=== PATIENT | female | born 1940 | race Caucasian/White ===

== ENCOUNTER 2018-08-26 02:34 | Emergency (ER) | payer BC, MEDICARE ==
[2018-08-26 02:38] VITALS: BP 126/65; PULSE 69
[2018-08-26] MEDS ORDERED: diphenhydrAMINE 25 MG Cap PO ONE (02:41)
[2018-08-26] MEDS ORDERED: Triamcinolone Acetonide 40 MG/ML 1 ML MDV INJECT ONE (02:42)
--- NOTE | 2018-08-26 02:48 | EDM.PDOC ---
ED HPI GENERAL MEDICAL PROBLEM - General Chief Complaint: Skin Complaint Stated Complaint: [facility] Time Seen by Provider: 08/26/18 02:43 Source of Information: Reports: Patient History Limitations: Reports: No Limitations - History of Present Illness INITIAL COMMENTS - FREE TEXT/NARRATIVE: pt was seen on the with some red raised area on both feet. She has now developed some lesions on the neck that look like bites. The pt states that they itch alot. She was nervous because these seem to be moving. Onset: Other ( started on the . ) Duration: Hour(s): Associated Symptoms: Reports: No Other Symptoms reddened areas on skin Pain Score (Numeric/FACES): 7 - Related Data Allergies Allergy/AdvReac Type Severity Reaction Status Date / Time trazodone AdvReac Intermediate Nausea and Verified 08/26/18 02:35 Vomiting Home Meds: Home Meds Cholecalciferol (Vitamin D3) [Vitamin D] 600 units PO DAILY 12/18/12 [History] Cyanocobalamin (Vitamin B-12) [Vitamin B-12] 1,000 mcg PO DAILY 12/18/12 [ History] FLUoxetine HCl [Prozac] 10 mg PO DAILY 12/18/12 [History] Levothyroxine 112 mcg PO DAILY 12/18/12 [History] Naproxen Sodium [Aleve] 220 mg PO DAILY 12/18/12 [History] Past Medical History [facility] History: Reports: Musculoskeletal History: Reports: Back Pain, Chronic Endocrine/Metabolic History: Reports: Hypothyroidism Oncologic (Cancer) History: Reports: Breast - Past Surgical History HEENT Surgical History: Reports: Cataract Surgery, Myringotomy w Tube(s) GI Surgical History: Reports: Colonoscopy, EGD, Other (See Below) Musculoskeletal Surgical History: Reports: Other (See Below) Oncologic Surgical History: Reports: Lumpectomy, Other (See Below) ED ROS GENERAL - Review of Systems Review Of Systems: See Below Constitutional: Reports: No Symptoms HEENT: Reports: No Symptoms Respiratory: Reports: No Symptoms Cardiovascular: Reports: No Symptoms Endocrine: Reports: No Symptoms GI/Abdominal: Reports: No Symptoms : Reports: No Symptoms Skin: Reports: Rash, Other (pt has lesions on the rt side of her neck which itch alot. ) Neurological: Reports: No Symptoms Psychiatric: Reports: No Symptoms ED EXAM, SKIN/RASH Exam: See Below Text/Narrative:: pt has some itch lesions which are on the rt side of her neck These appear to be bites and not hives. Exam Limited By: No Limitations General Appearance: Alert, Anxious Ears: Normal TMs Nose: Normal Inspection Throat/Mouth: Normal Inspection Head: Sinus Tenderness Neck: Normal Inspection Respiratory/Chest: No Respiratory Distress Cardiovascular: Regular Rate, Rhythm GI/Abdominal: Soft, Non-Tender (Female) Exam: Deferred Rectal (Female) Exam: Deferred Back Exam: Normal Inspection Extremities: Normal Inspection Neurological: Alert, Oriented, Normal Cognition Course - Vital Signs Last Recorded V/S: Last Vital Signs Temp 36.0 C 08/26/18 02:38 Pulse 69 08/26/18 02:38 Resp 15 08/26/18 02:38 BP 126/65 08/26/18 02:38 Pulse Ox 95 08/26/18 02:38 - Orders/Labs/Meds Meds: Medications Discontinued Medications Generic Name Dose Route Start Last Admin Trade Name Freq PRN Reason Stop Dose Admin Diphenhydramine HCl 50 mg 08/26/18 02:41 08/26/18 02:59 Benadryl PO 08/26/18 02:42 50 mg ONETIME ONE Administration Triamcinolone Acetonide 60 mg 08/26/18 02:42 08/26/18 02:59 Kenalog-40 INJECT 08/26/18 02:43 60 mg ASDIRECTED ONE Administration - Re-Assessments/Exams Free Text/Narrative Re-Assessment/Exam: 08/26/18 02:48 pt was given kenalog 60mg im and benadryl 50 mg po. Pt Is having her apartment checked out in the next few days. 08/29/18 18:33 Departure - Departure Time of Disposition: 03:00 Disposition: Home, Self-Care 01 Condition: Fair Clinical Impression: Bites - Discharge Information Instructions: Insect Bite, Adult, [id number] Referrals: PCP,None [Primary Care Provider] - Forms: ED Department Discharge Care Plan Goals: benadryl 25 mg q6h prn for itching and swelling. Have apartment checkedfor bed bugs,
== END 2018-08-26 03:21 | disposition home or self-care (01) ==
LOC: JP.ED 02:34
DX: S10.96XA Insect bite of unspecified part of neck, initial encounter (principal); E03.9 Hypothyroidism, unspecified; Z79.899 Other long term (current) drug therapy; Z96.22 Myringotomy tube(s) status; Z98.49 Cataract extraction status, unspecified eye; Z88.8 Allergy status to other drugs, medicaments and biological substances; W57.XXXA Bitten or stung by nonvenomous insect and other nonvenomous arthropods, initial encounter
CPT/HCPCS: 96372; 99283; A9270; J3301

== ENCOUNTER 2019-05-21 05:25 | Inpatient (IN) | payer MEDICARE ==
[2019-05-21] MEDS ORDERED: Acetaminophen 500 MG Tab PO ONE (05:31)
[2019-05-21] MEDS ORDERED: ceFAZolin 2 GM in Premix Bag 1 BAG IV ONE (06:30)
[2019-05-21] MEDS ORDERED: Isosulfan Blue 5 ML SDV ONE (06:40)
[2019-05-21] MEDS ORDERED: Albuterol/Ipratropium 3.0-0.5 MG/3 ML Neb Soln NEB ONE (07:00)
[2019-05-21] MEDS ORDERED: Neostigmine Methylsulfate 1 MG/ML 5 ML Syringe ONE (07:04)
[2019-05-21] MEDS ORDERED: fentaNYL 250 MCG/5 ML SDV ONE (07:04)
[2019-05-21] MEDS ORDERED: Ondansetron 4 MG/2 ML SDV ONE (07:04)
[2019-05-21] MEDS ORDERED: Rocuronium 50 MG/5 ML Vial ONE (07:04)
[2019-05-21] MEDS ORDERED: Succinylcholine 200 MG/10 ML MDV ONE (07:04)
[2019-05-21] MEDS ORDERED: Glycopyrrolate 0.2 MG/ML 5 ML MDV ONE (07:04)
[2019-05-21] MEDS ORDERED: Dexamethasone 4 MG/ML SDV ONE (07:04)
[2019-05-21] MEDS ORDERED: Propofol 200 MG/20 ML SDV ONE (07:04)
[2019-05-21] MEDS: Dextrose 5%-Lactated Ringers 1,000 ML IV SCH ×3 (07:15→19:59)
[2019-05-21] MEDS ORDERED: HYDROmorphone/Normal Saline 15 MG/30 ML PCA IV PRN (07:33)
[2019-05-21] MEDS ORDERED: Naloxone 0.4 MG/ML SDV IVPUSH PRN (07:33)
[2019-05-21] MEDS ORDERED: Naloxone 0.4 MG/ML SDV IV PRN (07:38)
[2019-05-21] MEDS ORDERED: hydrOXYzine HCL 100 MG/2 ML SDV IM PRN (10:25)
[2019-05-21] MEDS ORDERED: Ondansetron 4 MG/2 ML SDV IVPUSH PRN (10:25)
--- NOTE | 2019-05-21 10:28 | CR ---
CHEST: 2 view CLINICAL HISTORY:Wheezing COMPARISON:2011 FINDINGS: Heart is mildly enlarged pulmonary vascularity is normal. No infiltrate effusion or pneumothorax is seen. There are a few scattered granulomata. Impression: Mild cardiomegaly No acute cardiopulmonary process Previous granulomatous exposure.
[2019-05-21] MEDS: Acetaminophen 325 MG Tab PO SCH ×2 (15:49→19:58)
[2019-05-21] MEDS: ceFAZolin 2 GM in Premix Bag 1 BAG IV SCH ×2 (15:50→22:25)
[2019-05-22] MEDS: Acetaminophen 325 MG Tab PO SCH ×4 (01:32→19:36)
[2019-05-22] MEDS: ceFAZolin 2 GM in Premix Bag 1 BAG IV SCH (05:32)
[2019-05-22] MEDS ORDERED: HYDROmorphone 2 MG Tab PO PRN (07:04)
[2019-05-22] MEDS: Levothyroxine 112 MCG Tab PO SCH (07:16)
--- NOTE | 2019-05-22 08:00 | PN ---
DATE OF SERVICE: 05/22/2019 SUBJECTIVE: Claudia is postoperative day 1. Her pain has been controlled. She has been up ambulating, n.p.o., and vital signs have been stable. REVIEW OF SYSTEMS: Remainder of review of systems negative for any pertinent positives and negatives. OBJECTIVE: GENERAL: Claudia Hutchinson is a pleasant 79-year-old female. She is alert, orientated. VITAL SIGNS: TPR is 97.6, 66, 16, blood pressure 112/42. HEENT: Negative. NECK: Supple. HEART: Regular rate and rhythm. LUNGS: Revealed decreased breath sounds in bases. Occasional wheezing. Dressings are dry and intact. WILLY drains have been draining 58 and 32 of a light pink drainage. ABDOMEN: Soft, nontender. EXTREMITIES: Without peripheral edema. ASSESSMENT: Left modified radical mastectomy for local recurrence of left breast cancer, status post laparotomy, and right breast cancer in 1996. Date of surgery: 05/21/2019. Surgeon: Alexander Muller MD PLAN: 1. Teach the patient how to strip, empty, measure, and record WILLY drains 4 times a day. 2. Assess home health care. 3. Regular diet. 4. Dilaudid 2 mg every 4 hours p.r.n. pain. 5. Convert IV to saline lock. If the patient able to eat breakfast, okay. 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 6. Good pulmonary toilet. We will evaluate p.r.n. or in a.m. Darlene Kuhn PA-C /[id number]
[2019-05-23] MEDS: Acetaminophen 325 MG Tab PO SCH ×4 (02:55→20:20)
[2019-05-23] MEDS: Levothyroxine 112 MCG Tab PO SCH (07:45)
--- NOTE | 2019-05-23 08:57 | PN ---
DATE OF SERVICE: 05/23/2019 SUBJECTIVE: Claudia is postoperative day #2. She states her pain is controlled with Tylenol. She has been up, ambulating. Has not had a bowel movement yet. Vital signs have been stable. She has been afebrile. REVIEW OF SYSTEMS: Remainder of review of systems negative for any pertinent positives and negatives. OBJECTIVE: GENERAL: Claudia Hutchinson is a pleasant 79-year-old female. She is alert and orientated. VITAL SIGNS: TPR at 07:25 is 97.3; 87; 16; blood pressure 102/64. HEENT: Negative. NECK: Supple. HEART: Regular rate and rhythm. LUNGS: Clear. BREASTS: Left mastectomy site, dressing dry and intact, will be removed by nursing staff. WILLY drain is intact and draining over the past 24 hours, 30 and 20 mL of a light pink drainage. EXTREMITIES: Reveal trace peripheral edema. ASSESSMENT: Left modified radical mastectomy for local recurrence of left breast cancer, status post laparotomy, status post right breast cancer in 1996. . Date of surgery: 05/21/2019. Surgeon: Alexander Muller MD. PLAN: 1. Discontinue dressing, may shower. 2. Dulcolax 10 mg p.o. b.i.d. as scheduled, discontinue when the patient has a bowel movement, and Colace 100 mg p.o. b.i.d. 3. Good pulmonary toilet. 4. We will evaluate p.r.n. or in a.m. 5. Home health care will be set up and plan discharge for the patient in a.m. Darlene Kuhn PA-C /[id number]
[2019-05-23] MEDS ORDERED: Bisacodyl 5 MG Tab PO SCH (09:00)
[2019-05-23] MEDS: Docusate Sodium 100 MG Cap PO SCH ×2 (10:15→20:21)
--- NOTE | 2019-05-23 12:53 | OR ---
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 OPERATIVE PROCEDURE: Left modified radical mastectomy (). ANESTHESIA: General. MATERIAL SPECIALIST: Darlene Kuhn PA-C INDICATIONS FOR PROCEDURE: The patient presents with, what appeared to be, 2 small foci of recurrent infiltrating ductal carcinoma in a lumpectomy site. The patient underwent a lumpectomy, radiation treatment, along with what appeared to be a fairly full axillary dissection in 1996. The pathology fortunately has come back fairly differentiated with ER and NM receptors both preserved, HER2 was negative, and no evidence of any local regional disease apart from some firmness at the lumpectomy site. The plan is to proceed with a left modified radical mastectomy. We will try to get as much additional axillary soft tissue out to get some juni sampling. At this point, the juni spread pattern with the patient having what appeared to be a fairly extensive previous axillary dissection, such that we may not get much in the way of additional juni tissue and the pattern of spread would be somewhat variable, so it appeared the best way to get some beginning on the juni issue would be to do more of a complete axillary dissection. Potential risks of the procedure including bleeding, infection, local or distant tumor recurrence, problems with swelling of the arm following the axillary dissection were all reviewed, and the patient wishes to proceed. DETAILS OF PROCEDURE: The patient was taken to the operating room. After general endotracheal anesthesia was induced, she was placed in a supine position. The left breast, axilla, and surrounding areas were prepped and draped. A wide elliptical incision including the previous lumpectomy site as well the nipple-areolar complex was made and carried down through the skin and subcutaneous tissue, and the dissection continued medially, superiorly, and laterally to the usual extent. The breast was then reflected off the chest wall in continuity with pectoralis major fascia and at no point sensing we were nearby any tumor near the plane of dissection. At this point, the remaining axillary soft tissue from the axillary vein inferiorly including some level-1 tissue was excised. There were no obvious palpable enlarged nodes within that. Care was taken to avoid injury to the long thoracic and thoracodorsal nerves, both of which were identified during the dissection. At this point, no further problems were noted. Two Brent-López drains were then placed through stab wounds inferior to the main incision. The incision was closed with some 3-0 Vicryl stitch deep and juan for the skin. Drains were fixed with some 3-0 Vicryl stitch as well. The patient was taken to the recovery room in satisfactory condition. Physician occupational therapist's assistant, Darlene Kuhn, played an essential role in assisting in this case; helping to position the patient, retract structures as needed, as well as suturing and cutting sutures when indicated. Her presence improved patient safety and decreased the operative time. Alexander Muller MD /[id number]
[2019-05-24] MEDS: Acetaminophen 325 MG Tab PO SCH ×2 (02:52→08:37)
[2019-05-24 07:37] VITALS: BP 133/64; PULSE 82
[2019-05-24] MEDS: Levothyroxine 112 MCG Tab PO SCH (08:38)
[2019-05-24] MEDS: Docusate Sodium 100 MG Cap PO SCH (08:38)
--- NOTE | 2019-05-24 09:58 | DISCH ---
ADMISSION DIAGNOSIS: 1. Left breast cancer. 2. Hypothyroidism. 3. History of breast cancer, left breast 23 years ago. 4. Osteoarthritis. 5. History of hepatitis A. 6. Anxiety. 7. Depression. 8. Claustrophobia. 9. Chronic dizziness. 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 Date of surgery: 05/21/2019. HISTORY: Claudia Hutchinson is a pleasant 79-year-old female and presented with what appeared to be 2 small foci of recurrent infiltrating ductal carcinoma in the lumpectomy site. After preoperative evaluation, discussion of possible risks and possible complications, she wished to proceed with surgical procedure. HOSPITAL COURSE: Claudia had her surgery on 05/21/2019. She had no operative complications. On postoperative day #1, she was started on a regular diet. Pain was controlled. IV was saline locked. She was up, ambulating. Postop day #2, she remained afebrile and she was taught how to manage her WILLY drains while at home and she was also given bowel stimulation. Postop day #3, vital signs were stable. Pain was well managed. Activity was good and able to be discharged to home without any complications. PHYSICAL EXAMINATION: GENERAL: Claudia Hutchinson is a pleasant 79-year-old female, height is 5 feet 1 inch, weight is 184 pounds. BMI is 34.7. VITAL SIGNS: TPR at 0735, 96.8, 82, 16, blood pressure is 133/64. HEENT: Negative. NECK: Supple. HEART: Regular rate and rhythm. LUNGS: Clear. CHEST: Left mastectomy site incision looks good. [place] intact. She has 2 WILLY drains draining a light pink drainage of 92 and 28 respectively. ABDOMEN: Soft and nontender. EXTREMITIES: Without peripheral edema. DISPOSITION: Discharged to home. CONDITION: Stable and improving. She will be having home health care. FOLLOWUP APPOINTMENT: 05/30/2019 at 9 a.m. with Alexander Muller MD, [facility]. HOME MEDICATIONS: 1. Tylenol 650 mg q.6 hours p.r.n. pain. 2. Vitamin D3 600 international units oral daily. 3. Vitamin B12 1000 mcg oral daily. 4. Levothyroxine 112 mcg oral daily. 5. Naproxen 440 mg once daily p.r.n. pain. DIET: Usual diet as tolerated. Drink 8 to 10 glasses of water a day. OTHER ACTIVITY: No lifting over 10 pounds for 6 weeks. Walk inside your home 6 times daily. Driving: Do not drive for 1 week. Shower/bathing: May shower. DISCHARGE INSTRUCTIONS: Notify provider if any fever, increased pain, nausea, vomiting. Keep site clean and dry. Wound incision care: Strip, empty, measure and record WILLY drains 4 times a day. Bring record of drainage to clinic appointment. Special instruction: Use incentive spirometer 10 times every hour while awake for 1 week. Start exercise that the Physical Therapy gave you in one month as directed.
== END 2019-05-24 11:10 | disposition home health service (06) | DRG 583 ==
LOC: JP.SDSSCHI 05:25 → JP.SDS 05:25 → JP.2SS 09:30 → EDSTATUS 11:45
PROVIDERS: ADMIT Surgery; ATTEND Surgery
PROC: 0HTU0ZZ Resection of Left Breast, Open Approach (ICD-10-PCS; principal; 2019-05-21)
DX: C50.912 Malignant neoplasm of unspecified site of left female breast (principal); E03.9 Hypothyroidism, unspecified; M19.90 Unspecified osteoarthritis, unspecified site; F40.240 Claustrophobia; F41.8 Other specified anxiety disorders; Z79.890 Hormone replacement therapy; Z79.899 Other long term (current) drug therapy; Z88.8 Allergy status to other drugs, medicaments and biological substances; Z87.891 Personal history of nicotine dependence
CPT/HCPCS: 36415; 71046; 71046-26; 80053; 83735; 83880; 84100; 84443; 85027; 86300; 88305; 88307; 94640; 94762; 97161-GP; 97535-GP; A9270-GY; J0330; J0690; J1100; J1170; J2405; J2704; J2710; J3010; J3490; J7121; J7620-GY; Q9968

== ENCOUNTER 2020-02-24 16:21 | Emergency (ER) | payer MEDICARE ==
[2020-02-24] MEDS ORDERED: Morphine 4 MG/ML Syringe IVPUSH PRN (16:50)
[2020-02-24] MEDS ORDERED: Aspirin 81 MG Tab.Chew PO ONE (16:50)
[2020-02-24] MEDS ORDERED: Sodium Chloride 0.9% 10 ML Syringe FLUSH PRN ×2 (16:50→17:47)
--- NOTE | 2020-02-24 16:54 | EDM.PDOC ---
<OfficerRodrigue - Last Filed: 02/24/20 16:52> ED HPI GENERAL MEDICAL PROBLEM - General Chief Complaint: Cardiovascular Problem Stated Complaint: LAST NIGHT CHEST PAIN AND SIDE PAIN STARTED Time Seen by Provider: 02/24/20 16:44 Source of Information: Reports: Patient, RN Notes Reviewed History Limitations: Reports: No Limitations - History of Present Illness INITIAL COMMENTS - FREE TEXT/NARRATIVE: 80-year-old female presents emergency department take complaint of shortness of breath and chest pain that radiates down her left arm, she states the pain started last night has become progressively more short of breath through the day has a known history of breast cancer with a right-sided mastectomy however breast cancer has returned. 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 Left Chest Pain Score (Numeric/FACES): 3 - Related Data Allergies Allergy/AdvReac Type Severity Reaction Status Date / Time propranolol Allergy Hives Verified 05/11/19 09:55 trazodone AdvReac Intermediate Nausea and Verified 05/11/19 09:55 Vomiting Home Meds: Home Meds Cholecalciferol (Vitamin D3) [Vitamin D3] 600 units PO DAILY 12/18/12 [History] Cyanocobalamin (Vitamin B-12) [Vitamin B-12] 1,000 mcg PO DAILY 12/18/12 [History] Levothyroxine 112 mcg PO DAILY 12/18/12 [History] Naproxen Sodium [Aleve] 440 mg PO DAILY 12/18/12 [History] Acetaminophen [Tylenol] 650 mg PO Q6H tablet 05/24/19 [Rx] Anastrozole [Arimidex] 1 mg PO DAILY 02/24/20 [History] FLUoxetine [PROzac] 10 mg PO DAILY 02/24/20 [History] Past Medical History HEENT History: Reports: Glaucoma, Impaired Vision Other HEENT History: wears glasses Cardiovascular History: Reports: Blood Clots/VTE/DVT, Cardiomyopathy, Heart Failure (Ejection fraction 60% echo 2019), SOB on Exertion Respiratory History: Reports: Bronchitis, Recurrent Gastrointestinal History: Reports: Diverticulosis, Hemorrhoids Genitourinary History: Reports: Renal Disease [employer] History: Reports: Musculoskeletal History: Reports: Arthritis, Back Pain, Chronic, Other (See Below) Other Musculoskeletal History: bilat leg and feet pain Psychiatric History: Reports: Anxiety, Depression, Psych Hospitalization(s), Suicide Attempt Endocrine/Metabolic History: Reports: Hypothyroidism, Obesity/BMI 30+ Hematologic History: Reports: B12 Deficiency, Bleeding Disorder, Blood Transfusion(s) Oncologic (Cancer) History: Reports: Breast Dermatologic History: Reports: Eczema - Infectious Disease History Infectious Disease History: Reports: Chicken Pox, Hepatitis A, Measles, Mumps, Rubella, Shingles - Past Surgical History HEENT Surgical History: Reports: Cataract Surgery, Myringotomy w Tube(s), Tonsillectomy Cardiovascular Surgical History: Reports: None Respiratory Surgical History: Reports: None GI Surgical History: Reports: Colonoscopy, EGD, Other (See Below) Other GI Surgeries/Procedures: colon surgery; hemorrhoidectomy Female Surgical History: Reports: Breast Biopsy, Other (See Below) Other Female Surgeries/Procedures: lumpectomy with axcillary dissection Endocrine Surgical History: Reports: None Musculoskeletal Surgical History: Reports: Knee Replacement, Other (See Below) Other Musculoskeletal Surgeries/Procedures:: trigger finger Oncologic Surgical History: Reports: Lumpectomy, Other (See Below) Other Oncologic Surgeries/Procedures: removed lymphnodes on left side Dermatological Surgical History: Reports: None Social & Family History - Family History HEENT: Reports: Cataract Cardiac: Reports: [place], Other (See Below) Other Cardiac Family History: rheumatic fever Respiratory: Reports: Asthma GI: Reports: Other (See Below) Other GI Family History: colon resection : Reports: Other (See Below) Other Family History: Brights disease Musculoskeletal: Reports: RA Neurological: Reports: CVA Psychiatric: Reports: Anxiety, Depression Endocrine/Metabolic: Reports: Diabetes, type II, Hypothyroidism Hematologic: Reports: Bleeding Disorder Oncologic: Reports: Breast, Liver, Ovarian, Other (See Below) Other Oncologic Family History: larynx cancer - Tobacco Use Tobacco Use Status *Q: Never Tobacco User - Caffeine Use Caffeine Use: Reports: Coffee ED ROS GENERAL - Review of Systems Review Of Systems: See Below Constitutional: Reports: No Symptoms HEENT: Reports: No Symptoms Respiratory: Reports: Shortness of Breath Cardiovascular: Reports: Chest Pain, Dyspnea on Exertion GI/Abdominal: Reports: No Symptoms : Reports: No Symptoms ED EXAM, GENERAL - Physical Exam Exam: See Below Exam Limited By: No Limitations General Appearance: Alert, WD/WN, No Apparent Distress Respiratory/Chest: No Respiratory Distress, No Accessory Muscle Use, Crackles (Bases bilaterally) Cardiovascular: Regular Rate, Rhythm, No Murmur GI/Abdominal: Soft, Non-Tender Extremities: No Pedal Edema Departure - Departure Disposition: Home, Self-Care 01 Clinical Impression: Left-sided chest wall pain Instructions: Chest Wall Pain, [id number] Referrals: Dawson Felder MD [Primary Care Provider] - Forms: ED Department Discharge Additional Instructions: [place] OR acetaminophen for pain relief. Recheck with your provider later this week. Sepsis Event Note (ED) - Evaluation Sepsis Screening Result: No Definite Risk <Cali Lakhani - Last Filed: 02/24/20 19:24> Course - Vital Signs Last Recorded V/S: Last Vital Signs Temp 36.6 C 02/24/20 16:37 Pulse 67 02/24/20 18:38 Resp 11 L 02/24/20 18:38 BP 155/71 H 02/24/20 18:38 Pulse Ox 94 L 02/24/20 18:38 - Orders/Labs/Meds Orders: Active Orders 24 hr Category Date Time Status Cardiac Monitoring [RC] .As Directed Care 02/24/20 16:50 Active EKG Documentation Completion [RC] ASDIRECTED Care 02/24/20 16:50 Active Peripheral IV Care [RC] . DIRECTED Care 02/24/20 16:50 Active Peripheral IV Care [RC] . DIRECTED Care 02/24/20 17:47 Active Chest 1V Frontal [CR] Stat Exams 02/24/20 16:50 Taken Iopamidol [Isovue-370 (76%)] Med 02/24/20 18:00 Active 100 ml IV . DIRECTED Morphine Med 02/24/20 16:50 Active 4 mg IVPUSH Q10M PRN Nitroglycerin [Nitrostat] Med 02/24/20 16:50 Active 0.4 mg SL Q5M PRN Sodium Chloride 0.9% [Normal Saline] 1,000 ml Med 02/24/20 18:00 Active IV ASDIRECTED Sodium Chloride 0.9% [Normal Saline] 75 ml Med 02/24/20 18:00 Active IV ASDIRECTED Sodium Chloride 0.9% [Saline Flush] Med 02/24/20 16:50 Active 10 ml FLUSH ASDIRECTED PRN Sodium Chloride 0.9% [Saline Flush] Med 02/24/20 17:47 Active 10 ml FLUSH ASDIRECTED PRN Peripheral IV Insertion Adult [OM.PC] Stat Oth 02/24/20 16:50 Ordered Peripheral IV Insertion Adult [OM.PC] Urgent Oth 02/24/20 17:47 Ordered Saline Lock Insert [OM.PC] Stat Oth 02/24/20 16:50 Ordered EKG 12 Lead [EK] Stat Ther 02/24/20 16:50 Ordered Medication Orders Sodium Chloride (Normal Saline) 1,000 mls @ 500 mls/hr IV ASDIRECTED PATI Last Admin: 02/24/20 18:26 Dose: 500 mls/hr Documented by: ZION Sodium Chloride (Normal Saline) 75 mls @ 3 mls/sec IV ASDIRECTED [facility] Last Admin: 02/24/20 18:31 Dose: 3 mls/sec Documented by: UMER Iopamidol (Isovue-370 (76%)) 100 ml IV . DIRECTED [facility] Last Admin: 02/24/20 18:39 Dose: 100 ml Documented by: UMER Morphine Sulfate (Morphine) 4 mg IVPUSH Q10M PRN PRN Reason: Chest Pain Stop: 02/25/20 16:50 Last Admin: 02/24/20 17:19 Dose: 4 mg Documented by: ZION Nitroglycerin (Nitrostat) 0.4 mg SL Q5M PRN PRN Reason: Chest Pain Stop: 02/25/20 16:50 Last Admin: 02/24/20 17:06 Dose: 0.4 mg Documented by: Admin: 02/24/20 17:00 Dose: 0.4 mg Documented by: ZION Sodium Chloride (Saline Flush) 10 ml FLUSH ASDIRECTED PRN PRN Reason: Keep Vein Open Last Admin: 02/24/20 17:02 Dose: 10 ml Documented by: ZION Sodium Chloride (Saline Flush) 10 ml FLUSH ASDIRECTED PRN PRN Reason: Keep Vein Open Last Admin: 02/24/20 18:32 Dose: 10 ml Documented by: STACARLOSAG Labs: Laboratory Tests 02/24/20 02/24/20 Range/Units 16:50 16:50 WBC 9.0 (4.5-11.0) K/uL RBC 4.26 (3.30-5.50) M/uL Hgb 11.5 L (12.0-15.0) g/dL Hct 37.6 (36.0-48.0) % MCV 88 (80-98) fL MCH 27 (27-31) pg MCHC 31 L (32-36) % Plt Count 243 (150-400) K/uL Neut % (Auto) 61 (36-66) % Lymph % (Auto) 26 (24-44) % [place] % (Auto) 9 H (2-6) % Eos % (Auto) 3 (2-4) % Baso % (Auto) 0 (0-1) % Sodium 143 (140-148) mmol/L Potassium 3.9 (3.6-5.2) mmol/L Chloride 108 (100-108) mmol/L Carbon Dioxide 26 (21-32) mmol/L Anion Gap 9.5 (5.0-14.0) mmol/L BUN 22 H (7-18) mg/dL Creatinine 1.0 (0.6-1.0) mg/dL Est Cr Clr Drug Dosing 31.69 mL/min Estimated GFR (MDRD) 53 L (>60) Glucose 118 H (74-106) mg/dL Calcium 8.8 (8.5-10.1) mg/dL Total Bilirubin 0.3 (0.2-1.0) mg/dL AST 20 (15-37) U/L ALT 28 (12-78) U/L Alkaline Phosphatase 138 H (46-116) U/L Troponin I < 0.017 (0.000-0.056) ng/mL NT-Pro-B Natriuret Pep 282 (5-450) pg/mL Total Protein 6.7 (6.4-8.2) g/dL Albumin 3.3 L (3.4-5.0) g/dL Globulin 3.4 (2.3-3.5) g/dL Albumin/Globulin Ratio 1.0 L (1.2-2.2) Meds: Medications Generic Name Dose Route Start Last Admin Trade Name Freq PRN Reason Stop Dose Admin Sodium Chloride 1,000 mls @ 500 mls/hr 02/24/20 18:00 02/24/20 18:26 Normal Saline IV 500 mls/hr ASDIRECTED PATI Administration Sodium Chloride 75 mls @ 3 mls/sec 02/24/20 18:00 02/24/20 18:31 Normal Saline IV 3 mls/sec ASDIRECTED PATI Administration Iopamidol 100 ml 02/24/20 18:00 02/24/20 18:39 Isovue-370 (76%) IV 100 ml . DIRECTED PATI Administration Morphine Sulfate 4 mg 02/24/20 16:50 02/24/20 17:19 Morphine IVPUSH 02/25/20 16:50 4 mg Q10M PRN Administration Chest Pain Nitroglycerin 0.4 mg 02/24/20 16:50 02/24/20 17:06 Nitrostat SL 02/25/20 16:50 0.4 mg Q5M PRN Administration Chest Pain Sodium Chloride 10 ml 02/24/20 16:50 02/24/20 17:02 Saline Flush FLUSH 10 ml ASDIRECTED PRN Administration Keep Vein Open Sodium Chloride 10 ml 02/24/20 17:47 02/24/20 18:32 Saline Flush FLUSH 10 ml ASDIRECTED PRN Administration Keep Vein Open Discontinued Medications Generic Name Dose Route Start Last Admin Trade Name Freq PRN Reason Stop Dose Admin Aspirin 324 mg 02/24/20 16:50 02/24/20 16:57 Aspirin PO 02/24/20 16:51 324 mg ONETIME ONE Administration Sodium Chloride 10 ml 02/24/20 17:57 Normal Saline FLUSH 02/24/20 17:58 ONETIME ONE - Radiology Interpretation Free Text/Narrative:: Chest CT-neg CT Results Date: 02/24/20 CT Results Time: 19:18 Departure - Departure Time of Disposition: 19:30 Condition: Good Sepsis Event Note (ED) - Focused Exam Vital Signs: Vital Signs Temp Pulse Resp BP BP Pulse Ox 02/24/20 18:38 67 11 L 155/71 H 94 L 02/24/20 18:01 59 L 10 L 145/77 H 96 02/24/20 17:42 71 12 128/61 94 L 02/24/20 17:11 76 19 124/74 91 L 02/24/20 17:06 121/68 02/24/20 17:01 76 15 129/52 L 94 L 02/24/20 17:00 129/52 L 02/24/20 16:37 36.6 C 73 13 162/61 H 94 L - My Orders Last 24 Hours: My Active Orders 02/24/20 18:00 Iopamidol [Isovue-370 (76%)] 100 ml IV . DIRECTED Sodium Chloride 0.9% [Normal Saline] 75 ml IV ASDIRECTED - Assessment/Plan Last 24 Hours: My Active Orders 02/24/20 18:00 Iopamidol [Isovue-370 (76%)] 100 ml IV . DIRECTED Sodium Chloride 0.9% [Normal Saline] 75 ml IV ASDIRECTED
[2020-02-24] MEDS: Nitroglycerin 0.4 MG Tab.SL SL PRN ×2 (17:00→17:06)
[2020-02-24] MEDS ORDERED: Sodium Chloride 0.9% 10 ML SDV FLUSH ONE (17:57)
[2020-02-24] MEDS ORDERED: Sodium Chloride 0.9% 75 ML IV SCH (18:00)
[2020-02-24] MEDS ORDERED: Sodium Chloride 0.9% 1,000 ML IV SCH (18:00)
[2020-02-24] MEDS ORDERED: Iopamidol 755 Mg/ML 100 ML Bottle IV SCH (18:00)
[2020-02-24 18:39] VITALS: BP 155/71; PULSE 67
--- NOTE | 2020-02-24 19:09 | CRLCT ---
Indication: Left-sided pain history of breast cancer surgery 05/2019 Technique: Contrast enhanced CT chest Comparison: CT chest abdomen pelvis 06/12/2019 report is not available. Findings: Normal caliber thoracic aorta. Peer no aneurysm or dissection. No pulmonary emboli. Calcified mediastinal hilar lymph nodes mildly prominent mediastinal nodes. Heart size is normal. No pericardial effusion. Small left axillary lymph node 7 millimeter short axis series 2, image 18 can be followed up on subsequent exams. No definite adenopathy seen. Moderate centrilobular emphysema. Right upper lobe granuloma. Left mastectomy. 4 millimeter right middle lobe pulmonary nodule series 3, image 55 unchanged. Basilar atelectasis. Renal cysts partially seen. Splenic granuloma fatty liver. Duodenal diverticulum Mottled appearance bony skeleton could be related to demineralization. Impression: 1. No pulmonary emboli. No acute pulmonary findings. 2. Left mastectomy. 3. In 4 millimeter right middle lobe pulmonary nodule unchanged from prior study. Please note that all CT scans at this facility use dose modulation, iterative reconstruction, and/or weight-based dosing when appropriate to reduce radiation dose to as low as reasonably achievable. Dictated by Beatriz Olivas MD @ Feb 24 2020 6:58PM Signed by Dr. Beatriz Olivas @ Feb 24 2020 7:09PM
[2020-02-24] MEDS ORDERED: diphenhydrAMINE 50 MG/ML SDV IVPUSH ONE (19:34)
--- NOTE | 2020-02-25 10:14 | CR ---
CHEST: Portable 02/24/2020 at 5:10 PM CLINICAL HISTORY:Chest pain COMPARISON:May 2019 FINDINGS: The heart size, pulmonary vascularity and hilar structures are normal. No infiltrate effusion or pneumothorax is seen. IMPRESSION: No acute cardiopulmonary process.
== END 2020-02-24 20:30 | disposition home or self-care (01) ==
LOC: JP.ED 16:21
DX: R07.89 Other chest pain (principal); I50.9 Heart failure, unspecified; M19.90 Unspecified osteoarthritis, unspecified site; E03.9 Hypothyroidism, unspecified; E66.9 Obesity, unspecified; Z68.34 Body mass index [BMI] 34.0-34.9, adult; Z88.5 Allergy status to narcotic agent; Z88.8 Allergy status to other drugs, medicaments and biological substances; Z79.899 Other long term (current) drug therapy
CPT/HCPCS: 36415; 71045; 71260; 80053; 83880; 84484; 85025; 93005; 93010; 96374; 96375; 99284; 99285; A9270; J1200; J2270; J7030; Q9967

== ENCOUNTER 2020-09-13 09:10 | Emergency (ER) | payer MEDICARE ==
[2020-09-13] MEDS ORDERED: Alum Hydrox/Mag Hydrox/Simeth 15 ML, Lidocaine 2% 15 ML PO ONE ×2 (09:54)
[2020-09-13] MEDS ORDERED: Famotidine 20 MG/2 ML SDV IVPUSH ONE (09:56)
--- NOTE | 2020-09-13 10:02 | EDM.PDOC ---
ED HPI GENERAL MEDICAL PROBLEM - General Chief Complaint: Chest Pain Stated Complaint: [facility] Time Seen by Provider: 09/13/20 09:15 Source of Information: Reports: Patient, EMS History Limitations: Reports: No Limitations - History of Present Illness INITIAL COMMENTS - FREE TEXT/NARRATIVE: pt had about 15 to 20 minutes of severe pain. She was nauseated and she did vo edouard. She now is talking abouit pain in the upper abdoman. She states her pain was never as high as the chest. She was not sob. She does not have a cardioac history. Onset: Today, Sudden Duration: Minutes: Location: Reports: Chest Quality: Reports: Sharp, Stabbing Associated Symptoms: Reports: Chest Pain, Nausea/Vomiting, Other (upper abdomanal pain) Chest Pain Score (Numeric/FACES): 3 - Related Data Allergies Allergy/AdvReac Type Severity Reaction Status Date / Time propranolol Allergy Hives Verified 09/13/20 09:21 trazodone AdvReac Intermediate Nausea and Verified 09/13/20 09:21 Vomiting Home Meds: Home Meds Cyanocobalamin (Vitamin B-12) [Vitamin B-12] 1,000 mcg PO DAILY 12/18/12 [History] Levothyroxine 112 mcg PO DAILY 12/18/12 [History] Anastrozole [Arimidex] 1 mg PO DAILY 02/24/20 [History] FLUoxetine [PROzac] 10 mg PO DAILY 02/24/20 [History] Calcium Phosphate Trib/Vit D3 [Calcium-Vitamin D3 Gummies] 1 tab PO DAILY 09/13/20 [History] Ergocalciferol (Vitamin D2) [Vitamin D2] 400 unit PO DAILY 09/13/20 [History] Furosemide 20 mg PO DAILY 09/13/20 [History] Past Medical History HEENT History: Reports: Glaucoma, Impaired Vision Other HEENT History: wears glasses Cardiovascular History: Reports: Blood Clots/VTE/DVT, Cardiomyopathy, Heart Failure, SOB on Exertion Respiratory History: Reports: Bronchitis, Recurrent Gastrointestinal History: Reports: Diverticulosis, Hemorrhoids Genitourinary History: Reports: Renal Disease [employer] History: Reports: Musculoskeletal History: Reports: Arthritis, Back Pain, Chronic, Other (See Below) Other Musculoskeletal History: bilat leg and feet pain Psychiatric History: Reports: Anxiety, Depression, Psych Hospitalization(s), Suicide Attempt Endocrine/Metabolic History: Reports: Hypothyroidism, Obesity/BMI 30+ Hematologic History: Reports: B12 Deficiency, Bleeding Disorder, Blood Transfusion(s) Oncologic (Cancer) History: Reports: Breast Dermatologic History: Reports: Eczema - Infectious Disease History Infectious Disease History: Reports: Chicken Pox, Hepatitis A, Measles, Mumps, Rubella, Shingles - Past Surgical History HEENT Surgical History: Reports: Cataract Surgery, Myringotomy w Tube(s), Tonsillectomy GI Surgical History: Reports: Colonoscopy, EGD, Other (See Below) Other GI Surgeries/Procedures: colon surgery; hemorrhoidectomy Female Surgical History: Reports: Breast Biopsy, Other (See Below) Other Female Surgeries/Procedures: lumpectomy with axcillary dissection Endocrine Surgical History: Reports: None Musculoskeletal Surgical History: Reports: Knee Replacement, Other (See Below) Other Musculoskeletal Surgeries/Procedures:: trigger finger Oncologic Surgical History: Reports: Lumpectomy, Mastectomy, Other (See Below) Other Oncologic Surgeries/Procedures: removed lymphnodes on left side Social & Family History - Family History HEENT: Reports: Cataract Cardiac: Reports: [place], Other (See Below) Other Cardiac Family History: rheumatic fever Respiratory: Reports: Asthma GI: Reports: Other (See Below) Other GI Family History: colon resection : Reports: Other (See Below) Other Family History: Brights disease Musculoskeletal: Reports: RA Neurological: Reports: CVA Psychiatric: Reports: Anxiety, Depression Endocrine/Metabolic: Reports: Diabetes, type II, Hypothyroidism Hematologic: Reports: Bleeding Disorder Oncologic: Reports: Breast, Liver, Ovarian, Other (See Below) Other Oncologic Family History: larynx cancer - Tobacco Use Tobacco Use Status *Q: Never Tobacco User - Caffeine Use Caffeine Use: Reports: None - Recreational Drug Use Recreational Drug Use: No ED ROS GENERAL - Review of Systems Review Of Systems: See Below Constitutional: Reports: No Symptoms HEENT: Reports: No Symptoms Respiratory: Reports: No Symptoms Cardiovascular: Reports: Chest Pain, Other ( The area that she points to is upper abdoman and not chest. She did vomit. She has not had cardiac problems in the past. ) GI/Abdominal: Reports: Other ( pt describes pain in the upper abdoman. ) Musculoskeletal: Reports: No Symptoms Skin: Reports: No Symptoms ED EXAM, GENERAL - Physical Exam Exam: See Below Free Text/Narrative:: pt arrived wih painin her upper abdoman. Exam Limited By: No Limitations General Appearance: Alert, Anxious, Moderate Distress Ears: Normal TMs Nose: Normal Inspection Throat/Mouth: Normal Inspection Head: Atraumatic Neck: Normal Inspection Respiratory/Chest: No Respiratory Distress Cardiovascular: Regular Rate, Rhythm GI/Abdominal: Soft, Tender, Other (pt is tender in the epigastric area. ) (Female) Exam: Deferred Rectal (Female) Exam: Deferred Back Exam: Normal Inspection Extremities: Normal Inspection Neurological: Alert, Oriented, Normal Cognition Psychiatric: Anxious Course - Vital Signs Last Recorded V/S: Last Vital Signs Temp 35.3 C L 09/13/20 09:10 Pulse 57 L 09/13/20 10:06 Resp 17 09/13/20 10:06 BP 160/80 H 09/13/20 11:58 Pulse Ox 99 09/13/20 10:06 - Orders/Labs/Meds Orders: Active Orders 24 hr Category Date Time Status Chest 1V Frontal [CR] Stat Exams 09/13/20 09:13 Taken EKG 12 Lead [EK] Routine Ther 09/13/20 09:12 Ordered EKG 12 Lead [EK] Routine Ther 09/13/20 09:55 Ordered Labs: Laboratory Tests 09/13/20 09/13/20 09/13/20 Range/Units 09:10 09:10 09:15 WBC 12.2 H (4.5-11.0) K/uL RBC 4.27 (3.30-5.50) M/uL Hgb 11.8 L (12.0-15.0) g/dL Hct 36.9 (36.0-48.0) % MCV 86 (80-98) fL MCH 28 (27-31) pg MCHC 32 (32-36) % Plt Count 232 (150-400) K/uL Neut % (Auto) 77.7 H (36-66) % Lymph % (Auto) 13.7 L (24-44) % [place] % (Auto) 6.4 H (2-6) % Eos % (Auto) 2.0 (2-4) % Baso % (Auto) 0.2 (0-1) % PT 11.0 (9.5-12.0) sec INR 1.01 (0.80-1.20) APTT 24.8 L (27.0-36.0) sec Sodium (140-148) mmol/L Potassium (3.6-5.2) mmol/L Chloride (100-108) mmol/L Carbon Dioxide (21-32) mmol/L Anion Gap (5.0-14.0) mmol/L BUN (7-18) mg/dL Creatinine (0.6-1.0) mg/dL Est Cr Clr Drug Dosing mL/min Estimated GFR (MDRD) (>60) Glucose (74-106) mg/dL Calcium (8.5-10.1) mg/dL Total Bilirubin (0.2-1.0) mg/dL AST (15-37) U/L ALT (12-78) U/L Alkaline Phosphatase (46-116) U/L Troponin I (0.000-0.056) ng/mL Total Protein (6.4-8.2) g/dL Albumin (3.4-5.0) g/dL Globulin (2.3-3.5) g/dL Albumin/Globulin Ratio (1.2-2.2) Lipase (73-393) U/L 09/13/20 09/13/20 09/13/20 Range/Units 09:15 10:03 11:05 WBC (4.5-11.0) K/uL RBC (3.30-5.50) M/uL Hgb (12.0-15.0) g/dL Hct (36.0-48.0) % MCV (80-98) fL MCH (27-31) pg MCHC (32-36) % Plt Count (150-400) K/uL Neut % (Auto) (36-66) % Lymph % (Auto) (24-44) % [place] % (Auto) (2-6) % Eos % (Auto) (2-4) % Baso % (Auto) (0-1) % PT (9.5-12.0) sec INR (0.80-1.20) APTT (27.0-36.0) sec Sodium 142 (140-148) mmol/L Potassium 4.2 (3.6-5.2) mmol/L Chloride 107 (100-108) mmol/L Carbon Dioxide 23 (21-32) mmol/L Anion Gap 12.0 (5.0-14.0) mmol/L BUN 14 (7-18) mg/dL Creatinine 0.9 (0.6-1.0) mg/dL Est Cr Clr Drug Dosing 36.99 mL/min Estimated GFR (MDRD) > 60 (>60) Glucose 143 H (74-106) mg/dL Calcium 9.0 (8.5-10.1) mg/dL Total Bilirubin 0.3 (0.2-1.0) mg/dL AST 20 (15-37) U/L ALT 27 (12-78) U/L Alkaline Phosphatase 153 H (46-116) U/L Troponin I 0.026 0.380 H* (0.000-0.056) ng/mL Total Protein 6.9 (6.4-8.2) g/dL Albumin 3.1 L (3.4-5.0) g/dL Globulin 3.8 H (2.3-3.5) g/dL Albumin/Globulin Ratio 0.8 L (1.2-2.2) Lipase 158 (73-393) U/L Meds: Medications Discontinued Medications Generic Name Dose Route Start Last Admin Trade Name Freq PRN Reason Stop Dose Admin Al Hydroxide/Mg Hydroxide 15 0 ml 09/13/20 09:54 09/13/20 10:06 ml/ Lidocaine HCl 15 ml PO 09/13/20 09:55 30 ml ONETIME ONE Administration Famotidine 20 mg 09/13/20 09:56 09/13/20 10:07 Famotidine 20 Mg/2 Ml Sdv IVPUSH 09/13/20 09:57 20 mg ONETIME ONE Administration Heparin Sodium (Porcine) 4,000 units 09/13/20 11:52 09/13/20 12:04 Heparin Sodium 5,000 Units/Ml Vial IVPUSH 09/13/20 11:53 4,000 units ONETIME ONE Administration Nitroglycerin 0.4 mg 09/13/20 11:46 09/13/20 11:58 Nitroglycerin 0.4 Mg Tab.Sl SL 09/13/20 11:47 0.4 mg ONETIME ONE Administration - Re-Assessments/Exams Free Text/Narrative Re-Assessment/Exam: 09/13/20 12:00 pt arrived stating that her pain started in the epigastric area and then moved to the lower chest. She has not had a cardiac history except some minor chf. she did vomit twicwe at home. She did call an ambulance and her ekg showed some possible lateral changes. Her lead 3 had an inverted t. She had asa, nitro in the ambulance and she did improve. She hjas continued with low grade pain here at the hospital a second ekg was obtained which looked better. She continued with the abdomanal pain so a us was done on her GB which showed stones and mild thickening of her gb wall. Her first trop was normal. Her second trop was elevated. She continues to have low grade pain and she does point top the abdoman. 09/13/20 12:01 Departure - Departure Time of Disposition: 12:04 Disposition: DC/Tfer to Acute Hospital 02 Reason for Transfer *Q: Primary PCI Indicated Condition: Fair Clinical Impression: Elevated troponin, Gallbladder calculus Referrals: PCP,Unknown [Primary Care Provider] - Forms: ED Department Discharge Care Plan Goals: transfer to [facility]. Sepsis Event Note (ED) - Evaluation Sepsis Screening Result: No Definite Risk - My Orders Last 24 Hours: My Active Orders 09/13/20 09:12 EKG 12 Lead [EK] Routine 09/13/20 09:13 Chest 1V Frontal [CR] Stat 09/13/20 09:55 EKG 12 Lead [EK] Routine - Assessment/Plan Last 24 Hours: My Active Orders 09/13/20 09:12 EKG 12 Lead [EK] Routine 09/13/20 09:13 Chest 1V Frontal [CR] Stat 09/13/20 09:55 EKG 12 Lead [EK] Routine
[2020-09-13 10:03] VITALS: PULSE 57
[2020-09-13] MEDS ORDERED: Nitroglycerin 0.4 MG Tab.SL SL ONE (11:46)
[2020-09-13] MEDS ORDERED: Heparin Sodium 5,000 Units/ML Vial IVPUSH ONE (11:52)
[2020-09-13 12:00] VITALS: BP 160/80
--- NOTE | 2020-09-13 12:28 | CRLUS ---
For Patients: As a result of the Century Cures Act, medical imaging exams and procedure reports are released immediately into your electronic medical record. You may view this report before your referring provider. If you have questions, please contact your health care provider. INDICATION: Right upper quadrant abdominal pain. COMPARISON: None available. TECHNIQUE: Ultrasound examination of the right upper quadrant was performed. FINDINGS: There is moderate cholelithiasis, with multiple, echogenic, shadowing calculi filling approximately 1/3 of the gallbladder. The largest measures up to 1.4 centimeters in diameter. These are seen only in retrospect on the previous CT. There are findings consistent with acute cholecystitis. The gallbladder wall is mildly thickened at 4 millimeters. A sonographic Gallardo sign is present, with pain over the gallbladder during ultrasound examination. The gallbladder is also moderately enlarged, measuring 11.8 centimeters in length. The common bile duct is mildly dilated at 8 mm. The pancreatic head and body were examined, and these are normal in appearance. The superior abdominal aorta and visualized portions of the inferior vena cava are normal in appearance. The liver shows no sign of mass or contour abnormality, and there is no sign of ascites. There is a simple cyst in the upper pole of the right kidney measuring 4.1 x 3.1 x 2.9 centimeters consistent with the appearance on CT. The right kidney is otherwise normal and size and appearance, measuring 10.8 centimeters in length, with no sign of hydronephrosis. IMPRESSION: Cholelithiasis with findings suggesting acute cholecystitis. There is mild gallbladder wall thickening and a sonographic Gallardo sign is present. Mild dilatation of the common bile duct at 8 millimeters. Simple cyst in the upper pole of the right kidney measuring up to 4.1 centimeters in diameter, requiring no further follow-up. Dictated by Carlo Colón MD @ 09/13/2020 12:27:[address] Carlo Colón @ Sep 13 2020 12:27PM
--- NOTE | 2020-09-15 09:19 | CR ---
CHEST: Portable 09/13/2020 at 9:32 AM CLINICAL HISTORY:Chest pain COMPARISON:February 2020 FINDINGS: There is mild prominence in interstitial markings similar to prior study. The heart size, pulmonary vascularity and hilar structures are normal. No infiltrate effusion or pneumothorax is seen. IMPRESSION: No acute cardiopulmonary process. Chronic interstitial changes
== END 2020-09-13 13:11 ==
LOC: JP.ED 09:10
DX: K80.20 Calculus of gallbladder without cholecystitis without obstruction (principal); R79.89 Other specified abnormal findings of blood chemistry; I50.9 Heart failure, unspecified; E66.9 Obesity, unspecified; Z86.718 Personal history of other venous thrombosis and embolism; Z79.899 Other long term (current) drug therapy; Z88.4 Allergy status to anesthetic agent; Z88.5 Allergy status to narcotic agent; Z68.33 Body mass index [BMI] 33.0-33.9, adult
CPT/HCPCS: 36415; 71045; 76705; 80053; 83690; 84484; 85025; 85610; 85730; 93005; 96374; 96375; 99285; A9270; J1644; J3490

== ENCOUNTER 2021-04-20 08:52 | Emergency (ER) | payer MEDICARE ==
[2021-04-20 09:09] VITALS: PULSE 81
[2021-04-20] MEDS ORDERED: Ketorolac 30 MG/ML SDV IM ONE (09:30)
[2021-04-20 10:22] VITALS: BP 110/74
== END 2021-04-20 11:30 | disposition home or self-care (01) ==
LOC: JP.ED 08:52
DX: M25.512 Pain in left shoulder (principal); I25.10 Atherosclerotic heart disease of native coronary artery without angina pectoris; E03.9 Hypothyroidism, unspecified; E66.9 Obesity, unspecified; Z68.26 Body mass index [BMI] 26.0-26.9, adult; Z88.5 Allergy status to narcotic agent; Z88.8 Allergy status to other drugs, medicaments and biological substances; Z79.899 Other long term (current) drug therapy
CPT/HCPCS: 36415; 71046; 80053; 83605; 83690; 84484; 85025; 85379; 93005; 93010; 96372; 99283; 99284-25; J1885

== ENCOUNTER 2021-07-03 15:51 | Emergency (ER) | payer MEDICARE ==
[2021-07-03] MEDS ORDERED: Sodium Chloride 0.9% 10 ML Syringe FLUSH PRN (16:44)
[2021-07-03] MEDS ORDERED: Lactated Ringers 1,000 ML IV ONE (16:45)
[2021-07-03 20:45] VITALS: BP 116/61; PULSE 71
== END 2021-07-03 20:42 ==
LOC: JP.ED 15:51
DX: K56.609 Unspecified intestinal obstruction, unspecified as to partial versus complete obstruction (principal); N17.9 Acute kidney failure, unspecified; D72.829 Elevated white blood cell count, unspecified; R11.14 Bilious vomiting; I25.10 Atherosclerotic heart disease of native coronary artery without angina pectoris; E03.9 Hypothyroidism, unspecified; Z88.5 Allergy status to narcotic agent; Z79.899 Other long term (current) drug therapy; Z20.822 Contact with and (suspected) exposure to COVID-19; Z95.5 Presence of coronary angioplasty implant and graft
CPT/HCPCS: 36415; 74176; 80053; 83605; 83735; 85025; 86140; 93005; 93010; 96360; 96361; 99285; 99285-25; J7120; U0002

== ENCOUNTER 2023-02-09 01:30 | Emergency (ER) | payer MEDICARE ==
[2023-02-09 01:37] VITALS: BP 123/82; PULSE 68
[2023-02-09 02:08] LABS: BASOPHILS ABSOLUTE AUTO 0.05 K/uL (0.00-0.10); BASOPHILS PERCENT AUTO 0.8 % (0.1-1.3); EOSINOPHILS ABSOLUTE AUTO 0.26 K/uL (0.00-0.40); HEMOGLOBIN 10.2 g/dL (11.2-15.5); IMMATURE GRAN ABSOLUTE AUTO 0.02 K/uL (0.00-0.23); IMMATURE GRAN PERCENT AUTO 0.3 % (0.0-0.7); LYMPHOCYTES ABSOLUTE AUTO 2.88 K/uL (0.8-3.3); MEAN CORPUSCULAR HEMOGLOBIN 28.9 pg (31.6-35.5); MEAN CORPUSCULAR HGB CONC 31.9 g/dL (31.6-35.5); MEAN CORPUSCULAR VOLUME 90.7 fL (81.4-99.0); MONOCYTES ABSOLUTE AUTO 0.74 K/uL (0.20-0.90); MONOCYTES PERCENT AUTO 11.3 % (3.3-12.6); NEUTROPHILS ABSOLUTE AUTO 2.59 K/uL (1.0-7.6); NEUTROPHILS PERCENT AUTO 39.6 % (40.0-78.1); PLATELET COUNT,PLT 189 K/uL (130-375); RED BLOOD CELL COUNT 3.53 M/uL (3.77-5.24); WHITE BLOOD CELL COUNT,WBC 6.5 K/uL (3.2-11.0)
[2023-02-09 02:22] LABS: CALCIUM 8.3 mg/dL (8.5-10.1); CREATININE 1.1 mg/dL (0.6-1.0); EST CRCL DRUG DOSING (CG) 27.35 mL/min
== END 2023-02-09 03:00 | disposition home or self-care (01) ==
LOC: JP.ED 01:30
DX: S83.92XA Sprain of unspecified site of left knee, initial encounter (principal); I25.10 Atherosclerotic heart disease of native coronary artery without angina pectoris; I50.9 Heart failure, unspecified; M19.90 Unspecified osteoarthritis, unspecified site; E03.9 Hypothyroidism, unspecified; E66.9 Obesity, unspecified; Z79.82 Long term (current) use of aspirin; Z79.899 Other long term (current) drug therapy; Z88.8 Allergy status to other drugs, medicaments and biological substances; X58.XXXA Exposure to other specified factors, initial encounter
CPT/HCPCS: 36415; 73562-LT; 80048; 85025; 99284

== ENCOUNTER 2024-09-04 14:54 | Emergency (ER) | payer MEDICARE ==
[2024-09-04 15:34] VITALS: BP 131/57; PULSE 76
[2024-09-04] MEDS: Menthol 10%/Methyl Salicylate 15% 85 GM Tube TOP ONE (17:31)
== END 2024-09-04 17:41 | disposition home or self-care (01) ==
LOC: JP.ED 14:54
DX: M79.604 Pain in right leg (principal); M79.605 Pain in left leg; I11.0 Hypertensive heart disease with heart failure; Z88.8 Allergy status to other drugs, medicaments and biological substances; Z79.890 Hormone replacement therapy; Z79.82 Long term (current) use of aspirin
CPT/HCPCS: 99283; A9270